=== PATIENT | female | born 1995 | race American Indian/Alaskan Native ===

== ENCOUNTER 2016-12-22 12:59 | Emergency (ER) | payer SELFPAY ==
[2016-12-22 14:00] VITALS: BP 147/92
--- NOTE | 2016-12-22 15:04 | Emergency Department Report ---
Entered by EUGENIA MCCLURE, acting as scribe for YONG FINNEY PA. ED ENT HPI - General Chief complaint: Sore Throat Stated complaint: SORE THROAT Time Seen by Provider: 12/22/16 14:19 Source: patient Mode of arrival: Ambulatory Limitations: No Limitations - History of Present Illness Initial comments: 21 year old female with no significant PMHx presents to the ED c/o sore throat that began 2 days ago. Rates pain an 8/10 in severity. Associated symptoms includes chills, nausea, vomiting, and diarrhea since last week, cough, neck swelling, and difficulty swallowing, but she denies fever, drooling, abdominal pain, SOB, and chest pain. Uses tobacco products daily, but denies EtOH consumption. Reports taking off-brand Tylenol with no relief of symptoms. LMP . complaint: sore throat Onset/Timin -: days(s) Location: throat Severity: moderate Severity scale (0 -10): 8 Quality: aching Consistency: constant Improves with: none (off-brand Tylenol with no relief) Worsens with: swallowing Associated Symptoms: cough, sore throat, rhinorrhea, other (chills, nausea, vomiting, diarrhea, cough, neck swelling, but denies drooling, andominal pain, SOB, and chest pain). denies: fever, gum swelling, toothache, discharge from ear - Related Data Previous Rx's Medication Instructions Recorded Last Taken Type Cetirizine HCl [ZyrTEC] 10 mg PO QDAY #14 capsule 12/22/16 Unknown Rx Fluticasone [Flonase] 1 spray NS QDAY #1 bottle 12/22/16 Unknown Rx Ibuprofen [Motrin] 600 mg PO Q8H PRN #15 tablet 12/22/16 Unknown Rx Allergies Allergy/AdvReac Type Severity Reaction Status Date / Time No Known Allergies Allergy Unverified 12/22/16 13:55 ED Dental HPI - General Chief complaint: Sore Throat Stated complaint: SORE THROAT Time Seen by Provider: 12/22/16 14:19 Source: patient Mode of arrival: Ambulatory Limitations: No Limitations - History of Present Illness MD complaint: sore throat Onset/Timin -: days(s) Severity: moderate Quality: aching Consistency: constant Improves with: none (took of-brand Tylenol with no relief) Worsens with: swallowing Dental Associated Symptons: Yes: Sore Throat. No: Headache, Fever - Related Data Previous Rx's Medication Instructions Recorded Last Taken Type Cetirizine HCl [ZyrTEC] 10 mg PO QDAY #14 capsule 12/22/16 Unknown Rx Fluticasone [Flonase] 1 spray NS QDAY #1 bottle 12/22/16 Unknown Rx Ibuprofen [Motrin] 600 mg PO Q8H PRN #15 tablet 12/22/16 Unknown Rx Allergies Allergy/AdvReac Type Severity Reaction Status Date / Time No Known Allergies Allergy Unverified 12/22/16 13:55 ED Review of Systems Comment: All other systems reviewed and negative Constitutional: chills. denies: fever ENT: throat pain, congestion. denies: ear pain, other (drooling, but reports difficulty swallowing) Respiratory: cough. denies: orthopnea, shortness of breath, SOB with exertion, SOB at rest Cardiovascular: denies: chest pain Gastrointestinal: nausea, vomiting, diarrhea. denies: abdominal pain Musculoskeletal: other (neck swelling). denies: back pain, arthralgia Skin: denies: rash Neurological: denies: headache ED Past Medical Hx - Past Medical History Previous Medical History?: No - Surgical History Past Surgical History?: No - Family History Family history: no significant - Social History Smoking Status: Current Every Day Smoker Substance Use Type: None - Medications Home Medications: Home Medications Medication Instructions Recorded Confirmed Last Taken Type Cetirizine HCl [ZyrTEC] 10 mg PO QDAY #14 capsule 12/22/16 Unknown Rx Fluticasone [Flonase] 1 spray NS QDAY #1 bottle 12/22/16 Unknown Rx Ibuprofen [Motrin] 600 mg PO Q8H PRN #15 tablet 12/22/16 Unknown Rx ED Physical Exam - General Limitations: No Limitations General appearance: alert, in no apparent distress - Head Head exam: Present: atraumatic, normocephalic, normal inspection - Eye Eye exam: Present: normal appearance, PERRL, EOMI Pupils: Present: normal accommodation - ENT ENT exam: Present: normal exam, normal orophraynx, mucous membranes moist, TM's normal bilaterally (bilaterally pearly mclaughlin), normal external ear exam, other ( congested with eryyhema and clear drainage) - Expanded ENT Exam Expanded Ear exam: Present: normal external inspection Mouth exam: Present: normal external inspection. Absent: drooling, trismus, muffled voice, tongue normal, tongue elevation, laceration Teeth exam: Present: normal inspection Throat exam: Positive: other ( erythema pharynx). Negative: tonsillar erythema , tonsillomegaly, tonsillar exudate, R peritonsillar mass, L peritonsillar mass - Neck Neck exam: Present: normal inspection (supple), full ROM, lymphadenopathy ( cervical). Absent: tenderness - Respiratory Respiratory exam: Present: normal lung sounds bilaterally. Absent: respiratory distress, wheezes, rales, rhonchi, stridor, chest wall tenderness - Cardiovascular Cardiovascular Exam: Present: regular rate, normal rhythm, normal heart sounds. Absent: systolic murmur, diastolic murmur, rubs, gallop - GI/Abdominal GI/Abdominal exam: Present: soft, normal bowel sounds. Absent: distended, tenderness, guarding, rebound, rigid - Extremities Exam Extremities exam: Present: normal inspection, full ROM, normal capillary refill. Absent: tenderness, pedal edema, joint swelling, calf tenderness - Back Exam Back exam: Present: normal inspection, full ROM. Absent: tenderness - Neurological Exam Neurological exam: Present: alert, oriented X3, normal gait, reflexes normal. Absent: motor sensory deficit - Psychiatric Psychiatric exam: Present: normal affect, normal mood - Skin Skin exam: Present: warm, dry, intact, normal color. Absent: rash ED Course Vital Signs 12/22/16 13:55 Temperature 98.2 F Pulse Rate 74 Respiratory 20 Rate Blood Pressure 147/92 O2 Sat by Pulse 100 Oximetry ED Medical Decision Making - Lab Data Strep negative and culture pending - Medical Decision Making ED course: Strep test is negative and cultures are pending. I discussed the patient that she has no sign of inflammation which is viral in nature and will be treated with Motrin, Flonase and Zyrtec. Voice understanding and to follow- up with her primary care physician in 3-5 days and if she does not have one that she will need to follow-up with [facility]. ED Disposition Clinical Impression: Nausea and vomiting in adult patient Sinusitis nasal Qualifiers: Sinusitis location: unspecified location Chronicity: acute Recurrence: recurrent Qualified Code(s): J01.91 - Acute recurrent sinusitis, unspecified Acute pharyngitis Qualifiers: Pharyngitis/tonsillitis etiology: unspecified etiology Qualified Code(s): J02.9 - Acute pharyngitis, unspecified Disposition: DISCHARGED TO HOME OR SELFCARE Is pt being admited?: No Does the pt Need Aspirin: No Condition: Stable Instructions: Pharyngitis (ED), Sinusitis (ED), Viral Syndrome (ED) Additional Instructions: Please increase her fluid intake flush and nostrils with nasal saline wash. Take medication as prescribed Prescriptions: Cetirizine HCl [ZyrTEC] 10 mg PO QDAY #14 capsule Fluticasone [Flonase] 1 spray NS QDAY #1 bottle Ibuprofen [Motrin] 600 mg PO Q8H PRN #15 tablet PRN Reason: Pain Referrals: PRIMARY CARE,MD [Primary Care Provider] - 3-5 Days [facility] [Outside] - 3-5 Days Forms: Work/School Release Form(ED) This documentation as recorded by the REN garcia JASMINE,accurately reflects the service I personally performed and the decisions made by SHARMIN grant VERONA A, PA.
== END 2016-12-22 15:24 | disposition home or self-care (01) ==
LOC: ED 12:59
DX: R11.2 Nausea with vomiting, unspecified (principal); J01.91 Acute recurrent sinusitis, unspecified; J02.9 Acute pharyngitis, unspecified; F17.200 Nicotine dependence, unspecified, uncomplicated
CPT/HCPCS: 87116; 87430; 99282

== ENCOUNTER 2017-05-26 07:50 | Emergency (ER) | payer OTHER ==
[2017-05-26] MEDS ORDERED: FLEXERIL PO ONE (11:48)
[2017-05-26] MEDS ORDERED: NORCO 5/325 PO ONE (11:48)
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
[2017-05-26 12:53] VITALS: BP 127/81
== END 2017-05-26 12:52 | disposition home or self-care (01) ==
LOC: ED 07:50
DX: M54.5 Low back pain (principal); M62.830 Muscle spasm of back; V49.88XA Car occupant (driver) (passenger) injured in other specified transport accidents, initial encounter; Y92.488 Other paved roadways as the place of occurrence of the external cause; Y93.89 Activity, other specified; Y99.8 Other external cause status
CPT/HCPCS: 99282

== ENCOUNTER 2017-05-28 16:54 | Emergency (ER) | payer SELFPAY ==
[2017-05-28 19:33] LABS: Bilirubin,Urine NEG (Negative); Blood,Urine NEG (Negative); Ketones,Urine NEG (Negative); Leukocyte Esterase,Urine TR (Negative); Nitrite,Urine NEG (Negative); Protein,Urine <15 mg/dL mg/dL (Negative); Urobilinogen,Urine < 2.0 mg/dL (<2.0)
--- NOTE | 2017-05-29 00:04 | Emergency Department Report ---
Minor Respiratory - HPI Chief Complaint: Sore Throat Stated Complaint: CAN NOT BREATH Time Seen by Provider: 05/28/17 23:14 Duration: for over a week Pain Location: Throat, Other (Body ache) Severity: mild (4 out of 10) Minor Respiratory: Yes Rhinorrhea ( nasal congestion), Yes Sore Throat, Yes Able to Tolerate Fluids, Yes Cough, No Ear Pain, No Sick Contacts, No Hemoptysis , No Chest Pain, No Shortness of Breath, No Fever (she says she has chills) Other History: Pt here reports that she has sore throat, body ache and difficulty swallowing and with cough. She says she's been having nasal congestion and runny nose for over a week but now she is having sore throat with body aches for the past 2 days. She says she doesn't know she has a fever but she was feeling in hot and cold and she took some Motrin. Denies any nausea or vomiting. Denies any chest pain or shortness of breath at present. She denies any medical problems. ED Review of Systems ROS: Stated complaint: CAN NOT BREATH Other details as noted in HPI Comment: All other systems reviewed and negative Constitutional: chills Eyes: denies: eye pain, eye discharge, vision change ENT: throat pain, congestion. denies: ear pain Respiratory: cough. denies: shortness of breath, SOB with exertion, SOB at rest , stridor, wheezing Cardiovascular: denies: chest pain, palpitations, edema, syncope Gastrointestinal: denies: abdominal pain, nausea, vomiting Genitourinary: denies: dysuria Musculoskeletal: myalgia. denies: back pain, arthralgia Skin: denies: rash Neurological: denies: headache, weakness, numbness, paresthesias, confusion, abnormal gait ED Past Medical Hx - Past Medical History Previous Medical History?: Yes Additional medical history: Obesity with BMI of 49 - Surgical History Past Surgical History?: Yes - Family History Family history: no significant - Social History Smoking Status: Current Every Day Smoker Substance Use Type: None Other Social History: Single - Medications Home Medications: Home Medications Medication Instructions Recorded Confirmed Last Taken Type Cetirizine HCl [ZyrTEC] 10 mg PO QDAY #14 capsule 12/22/16 05/28/17 05/28/17 Rx Amoxicillin/K Clav Tab [Augmentin 1 tab PO Q12HR #20 tab 05/29/17 Unknown Rx 875 mg] Cetirizine HCl [ZyrTEC] 10 mg PO QDAY #14 capsule 05/29/17 Unknown Rx Fluticasone [Flonase] 1 spray NS QDAY #1 bottle 05/29/17 Unknown Rx Ibuprofen [Motrin] 800 mg PO Q8HR PRN #15 tablet 05/29/17 Unknown Rx Minor Respiratory Exam - Exam General: Vital signs noted. No distress. Alert and acting appropriately. This is a 21-year-old female well-nourished well-developed and in no acute distress. HEENT: Yes Moist Mucous Membranes, Yes Rhinorrhea (nasal mucosa congested with erythema and clear drainage), Yes Maxillary Tenderness (maxillary sinus tenderness to palpate bilaterally), No Pharyngeal Erythema, No Pharyngeal Exudates, No Conjuctival Injection, No Frontal Tenderness Ear: Neither TM Bulge, Neither TM Erythema (lateral TM congested without erythema), Neither EAC Pain, Neither EAC Discharge Neck: Yes Supple, No Adenopathy Lungs: Yes Good Air Exchange, Yes Cough (dry cough), No Wheezes, No Ronchi, No Stridor, No Labored Respirations, No Retractions, No Use of Accessory Muscles, No Other Abnormal Lung Sounds Heart: Yes Regular, No Murmur Abdomen: Yes Normal Bowel Sounds, No Tenderness, No Peritoneal Signs Skin: No Rash, No Edema Neurologic: Alert and oriented, no deficits. No focal neurological deficit. Patient is alert and oriented 3. Normal gait. Musculoskeletal: Unremarkable. Normal exam. Extremity: No clubbing cyanosis or edema. +2 pulses to all extremities and no neurovascular compromise ED Course Vital Signs 05/28/17 05/28/17 18:04 21:22 Temperature 98.4 F 98.7 F Pulse Rate 73 76 Respiratory 16 20 Rate Blood Pressure 129/84 Blood Pressure 125/83 [Right] O2 Sat by Pulse 99 99 Oximetry - Reevaluation(s) Reevaluation #1: 05/29/17 00:32 stable throughout ED stay ED Medical Decision Making - Medical Decision Making ED course: Pt here reported that she has sore throat with difficulty swallowing , body aches this is preceded by nasal congestion and runny nose. Patient did not take any [id number] medication for symptoms.For acute sinusitis, pharyngitis and cough. Diagnosis and treatment plan explained to patient and she voices understanding. Patient also instructed on smoking cessation and obesity. Discharged home in stable condition with prescription for Zyrtec, Flonase and Augmentin. Critical care attestation.: If time is entered above; I have spent that time in minutes in the direct care of this critically ill patient, excluding procedure time. ED Disposition Clinical Impression: Nicotine abuse, Encounter for smoking cessation counseling, Cough in adult patient Obesity Qualifiers: Obesity type: unspecified obesity type Obesity classification: adult class 3 ( BMI >= 40) Serious obesity comorbidity presence: without serious comorbidity Body mass index: BMI 50.0-59.9 Qualified Code(s): E66.9 - Obesity, unspecified; Z68.43 - Body mass index (BMI) 50-59.9 , adult Sinusitis, acute Qualifiers: Sinusitis location: unspecified location Recurrence: not specified as recurrent Qualified Code(s): J01.90 - Acute sinusitis, unspecified Pharyngitis Qualifiers: Pharyngitis/tonsillitis etiology: unspecified etiology Qualified Code(s): J02.9 - Acute pharyngitis, unspecified Disposition: DC- TO HOME OR SELFCARE Is pt being admited?: No Does the pt Need Aspirin: No Condition: Stable Instructions: How to Stop Smoking (ED), Weight Management (ED), Obesity (ED), Sinusitis (ED), Acute Cough (ED), Pharyngitis (ED) Additional Instructions: Please take antibiotic as prescribed He can take Motrin and this will help to relieve his sore throat gargle with warm salt water Flush nostrils with normal saline nasal Please follow discharge instructions on obesity, weight loss and smoking Prescriptions: Amoxicillin/K Clav Tab [Augmentin 875 mg] 1 tab PO Q12HR #20 tab Cetirizine HCl [ZyrTEC] 10 mg PO QDAY #14 capsule Fluticasone [Flonase] 1 spray NS QDAY #1 bottle Ibuprofen [Motrin] 800 mg PO Q8HR PRN #15 tablet PRN Reason: Sore Throat Referrals: PRIMARY CARE [Primary Care Provider] - 06/02/17 Forms: Work/School Release Form(ED)
[2017-05-29 00:51] VITALS: BP 149/97
== END 2017-05-29 01:00 | disposition home or self-care (01) ==
LOC: ED 16:54
DX: J01.90 Acute sinusitis, unspecified (principal); J02.9 Acute pharyngitis, unspecified; E66.9 Obesity, unspecified; Z68.43 Body mass index [BMI] 50.0-59.9, adult; F17.200 Nicotine dependence, unspecified, uncomplicated
CPT/HCPCS: 81001; 81025

== ENCOUNTER 2019-02-20 10:27 | Emergency (ER) | payer OTHER ==
[2019-02-20 10:35] VITALS: BP 127/94
--- NOTE | 2019-02-20 11:38 | Emergency Department Report ---
ED Upper Extremity Inj HPI - General Chief Complaint: Extremity Injury, Upper Stated Complaint: LT ARM PAIN Time Seen by Provider: 02/20/19 11:29 Source: patient Mode of arrival: Ambulatory Limitations: No Limitations - History of Present Illness Initial Comments: 23-year-old female presents the ED with complaint of left shoulder pain since yesterday. [place] states she was pulling heavy trash bags when she experienced pain in the left chest wall and shoulder. Patient was advised to ice the area, presents today because of continued pain. Patient states pain is worse when she attempts to abduct her left arm or rotate the left arm posteriorly. Denies shortness of breath. Complaint: Injury to:: left, shoulder -: days(s) (1) Other Injuries: none Place: work Improves With: immobilization Worsens With: movement of extremity Context: other (pulling heavy object) Associated Symptoms: denies: weakness, numbness, neck pain, heard/felt popping sensat Treatments Prior to Arrival: cold therapy - Related Data Previous Rx's Medication Instructions Recorded Last Taken Type Cetirizine HCl [ZyrTEC] 10 mg PO QDAY #14 capsule 12/22/16 05/28/17 Rx Amoxicillin/K Clav Tab [Augmentin 1 tab PO Q12HR #20 tab 05/29/17 Unknown Rx 875 mg] Cetirizine HCl [ZyrTEC] 10 mg PO QDAY #14 capsule 05/29/17 Unknown Rx Fluticasone [Flonase] 1 spray NS QDAY #1 bottle 05/29/17 Unknown Rx Ibuprofen [Motrin] 800 mg PO Q8HR PRN #15 tablet 05/29/17 Unknown Rx Naproxen [Naprosyn] 500 mg PO BID #20 tablet 02/20/19 Unknown Rx methOCARBAMOL [Robaxin TAB] 500 mg PO Q8HR PRN #20 tablet 02/20/19 Unknown Rx Allergies Allergy/AdvReac Type Severity Reaction Status Date / Time No Known Allergies Allergy Verified 02/20/19 10:28 ED Review of Systems ROS: Stated complaint: LT ARM PAIN Other details as noted in HPI Comment: All other systems reviewed and negative Respiratory: denies: shortness of breath Cardiovascular: chest pain (reports chest wall pain) Musculoskeletal: as per HPI Neurological: denies: weakness, numbness, paresthesias ED Past Medical Hx - Past Medical History Additional medical history: Obesity with BMI of 49 - Social History Smoking Status: Current Every Day Smoker Substance Use Type: None - Medications Home Medications: Home Medications Medication Instructions Recorded Confirmed Last Taken Type Cetirizine HCl [ZyrTEC] 10 mg PO QDAY #14 capsule 12/22/16 05/28/17 05/28/17 Rx Amoxicillin/K Clav Tab [Augmentin 1 tab PO Q12HR #20 tab 05/29/17 Unknown Rx 875 mg] Cetirizine HCl [ZyrTEC] 10 mg PO QDAY #14 capsule 05/29/17 Unknown Rx Fluticasone [Flonase] 1 spray NS QDAY #1 bottle 05/29/17 Unknown Rx Ibuprofen [Motrin] 800 mg PO Q8HR PRN #15 tablet 05/29/17 Unknown Rx Naproxen [Naprosyn] 500 mg PO BID #20 tablet 02/20/19 Unknown Rx methOCARBAMOL [Robaxin TAB] 500 mg PO Q8HR PRN #20 tablet 02/20/19 Unknown Rx ED Physical Exam - General Limitations: No Limitations General appearance: alert, in no apparent distress, obese - Head Head exam: Present: atraumatic, normocephalic - Eye Eye exam: Present: normal appearance - ENT ENT exam: Present: mucous membranes moist - Neck Neck exam: Present: normal inspection - Respiratory Respiratory exam: Present: normal lung sounds bilaterally. Absent: respiratory distress - Cardiovascular Cardiovascular Exam: Present: regular rate, normal rhythm - GI/Abdominal GI/Abdominal exam: Absent: distended - Extremities Exam Extremities exam: Present: other (tenderness to anterior left shoulder and left superolateral chest wall, pain w/ ROM of left shoulder, no swelling or deformity noted) - Neurological Exam Neurological exam: Present: alert, oriented X3. Absent: motor sensory deficit - Psychiatric Psychiatric exam: Present: normal affect, normal mood - Skin Skin exam: Present: warm, dry, intact, normal color. Absent: rash ED Course Vital Signs 02/20/19 10:32 Temperature 98.6 F Pulse Rate 84 Respiratory 16 Rate Blood Pressure 127/94 O2 Sat by Pulse 98 Oximetry ED Medical Decision Making - Differential Diagnosis costochondritis, rotator cuff injury Critical care attestation.: If time is entered above; I have spent that time in minutes in the direct care of this critically ill patient, excluding procedure time. ED Disposition Clinical Impression: Rotator cuff tendinitis, Chest wall pain Disposition: TO HOME OR SELFCARE Is pt being admited?: No Condition: Stable Instructions: Rotator Cuff Tendinitis (ED), Costochondritis (ED) Prescriptions: Naproxen [Naprosyn] 500 mg PO BID #20 tablet methOCARBAMOL [Robaxin TAB] 500 mg PO Q8HR PRN #20 tablet PRN Reason: Muscle Spasm Referrals: [place] KASSANDRAGRANBY MD KOLTON [Primary Care Provider] - 3-5 Days CASTRO GUERRERO MD [Staff Physician] - 3-5 Days Forms: Work/School Release Form(ED) Time of Disposition: 11:38
== END 2019-02-20 11:52 | disposition home or self-care (01) ==
LOC: ED 10:27
DX: M77.9 Enthesopathy, unspecified (principal); F17.200 Nicotine dependence, unspecified, uncomplicated; Z79.899 Other long term (current) drug therapy
CPT/HCPCS: 99282

== ENCOUNTER 2019-06-04 10:57 | Emergency (ER) | payer SELFPAY ==
--- NOTE | 2019-06-04 11:18 | Event Note ---
ED Screening Note Date of service: 06/04/19 Time: 11:17 ED Screening Note: This is a 23 y.o. F. that presents to the ER with sore throat, cough, congestion, and back pain for 2 days. Taken nyquil cold and flu. No significant PMH. This initial assessment/diagnostic orders/clinical plan/treatment(s) is/are subject to change based on patients health status, clinical progression and re- assessment by fellow clinical providers in the ED. Further treatment and workup at subsequent clinical providers discretion. Patient/guardian urged not to elope from the ED as their condition may be serious if not clinically assessed and managed. Initial orders include:
[2019-06-04 11:19] VITALS: BP 115/79
--- NOTE | 2019-06-04 12:03 | Emergency Department Report ---
- General Chief Complaint: Upper Respiratory Infection Stated Complaint: COLD/SICK Time Seen by Provider: 06/04/19 11:16 Source: patient Mode of arrival: Ambulatory Limitations: No Limitations - History of Present Illness MD Complaint: cough, rhinorrhea, nasal congestion Onset/Timin -: Gradual, days(s) Severity scale (0 -10): 5 Quality: dull Consistency: intermittent Improves With: nothing, OTC cold medicine Context: sick contacts Associated Symptoms: myalgias, rhinorrhea, nasal congestion, sore throat, cough, nausea. denies: fever, stiff neck, vomiting, diarrhea, dysuria Treatments Prior to Arrival: none - Related Data Previous Rx's Medication Instructions Recorded Last Taken Type Cetirizine HCl [ZyrTEC] 10 mg PO QDAY #14 capsule 12/22/16 05/28/17 Rx Amoxicillin/K Clav Tab [Augmentin 1 tab PO Q12HR #20 tab 05/29/17 Unknown Rx 875 mg] Fluticasone [Flonase] 1 spray NS QDAY #1 bottle 05/29/17 Unknown Rx Naproxen [Naprosyn] 500 mg PO BID #20 tablet 02/20/19 Unknown Rx methOCARBAMOL [Robaxin TAB] 500 mg PO Q8HR PRN #20 tablet 02/20/19 Unknown Rx Benzonatate [Tessalon Perles] 100 mg PO Q8HR #30 capsule 06/04/19 Unknown Rx Cetirizine HCl [ZyrTEC 10mg cap] 10 mg PO QDAY #14 capsule 06/04/19 Unknown Rx Ibuprofen [Motrin 800 MG tab] 800 mg PO Q8HR PRN #15 tablet 06/04/19 Unknown Rx Acetaminophen [Non-Aspirin Extra 500 mg PO Q6HR PRN #30 tablet 06/30/19 Unknown Rx Strength] Ibuprofen [Motrin] 600 mg PO Q8H PRN #30 tablet 06/30/19 Unknown Rx Allergies Allergy/AdvReac Type Severity Reaction Status Date / Time No Known Allergies Allergy Verified 02/20/19 10:28 ED Review of Systems ROS: Stated complaint: COLD/SICK Other details as noted in HPI Comment: All other systems reviewed and negative Constitutional: malaise ENT: ear pain, throat pain Respiratory: cough. denies: orthopnea Cardiovascular: denies: chest pain, palpitations Endocrine: denies: excessive sweating, flushing Gastrointestinal: denies: nausea, vomiting Genitourinary: denies: urgency Musculoskeletal: denies: back pain Skin: denies: rash Neurological: denies: headache Psychiatric: denies: anxiety ED Past Medical Hx - Past Medical History Previous Medical History?: No Additional medical history: Obesity with BMI of 49 - Surgical History Past Surgical History?: No - Social History Smoking Status: Never Smoker Substance Use Type: None - Medications Home Medications: Home Medications Medication Instructions Recorded Confirmed Last Taken Type Cetirizine HCl [ZyrTEC] 10 mg PO QDAY #14 capsule 12/22/16 05/28/17 05/28/17 Rx Amoxicillin/K Clav Tab [Augmentin 1 tab PO Q12HR #20 tab 05/29/17 Unknown Rx 875 mg] Fluticasone [Flonase] 1 spray NS QDAY #1 bottle 05/29/17 Unknown Rx Naproxen [Naprosyn] 500 mg PO BID #20 tablet 02/20/19 Unknown Rx methOCARBAMOL [Robaxin TAB] 500 mg PO Q8HR PRN #20 tablet 02/20/19 Unknown Rx Benzonatate [Tessalon Perles] 100 mg PO Q8HR #30 capsule 06/04/19 Unknown Rx Cetirizine HCl [ZyrTEC 10mg cap] 10 mg PO QDAY #14 capsule 06/04/19 Unknown Rx Ibuprofen [Motrin 800 MG tab] 800 mg PO Q8HR PRN #15 tablet 06/04/19 Unknown Rx Acetaminophen [Non-Aspirin Extra 500 mg PO Q6HR PRN #30 tablet 06/30/19 Unknown Rx Strength] Ibuprofen [Motrin] 600 mg PO Q8H PRN #30 tablet 06/30/19 Unknown Rx ED Physical Exam - General Limitations: No Limitations General appearance: alert, in no apparent distress - Head Head exam: Present: atraumatic, normocephalic - Eye Eye exam: Present: normal appearance, PERRL, EOMI Pupils: Present: normal accommodation - ENT ENT exam: Present: normal exam, normal orophraynx - Neck Neck exam: Present: normal inspection - Respiratory Respiratory exam: Present: normal lung sounds bilaterally, respiratory distress - Cardiovascular Cardiovascular Exam: Present: regular rate, normal rhythm - GI/Abdominal GI/Abdominal exam: Present: soft ED Course Vital Signs 06/04/19 11:16 Temperature 97.9 F Pulse Rate 91 H Respiratory 16 Rate Blood Pressure 115/79 [Left] O2 Sat by Pulse 97 Oximetry Critical care attestation.: If time is entered above; I have spent that time in minutes in the direct care of this critically ill patient, excluding procedure time. ED Disposition Clinical Impression: Viral upper respiratory tract infection with cough, Acute viral pharyngitis Disposition: DC- TO HOME OR SELFCARE Is pt being admited?: No Does the pt Need Aspirin: No Condition: Stable Prescriptions: Ibuprofen [Motrin 800 MG tab] 800 mg PO Q8HR PRN #15 tablet PRN Reason: Sore Throat Benzonatate [Tessalon Perles] 100 mg PO Q8HR #30 capsule Cetirizine HCl [ZyrTEC 10mg cap] 10 mg PO QDAY #14 capsule Referrals: STEPHEN BECERRIL MD [Primary Care Provider] - 3-5 Days Forms: Work/School Release Form(ED)
== END 2019-06-04 12:33 | disposition home or self-care (01) ==
LOC: ED 10:57
DX: J02.8 Acute pharyngitis due to other specified organisms (principal); J06.9 Acute upper respiratory infection, unspecified; Z79.899 Other long term (current) drug therapy
CPT/HCPCS: 99282

== ENCOUNTER 2019-06-30 20:14 | Emergency (ER) | payer OTHER ==
[2019-06-30 21:13] VITALS: BP 135/83
[2019-06-30] MEDS ORDERED: KETOROLAC 30 MG/1 ML INJ IM STA (23:23)
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
== END 2019-06-30 23:58 | disposition home or self-care (01) ==
LOC: ED 20:14
DX: M54.89 Other dorsalgia (principal); M54.2 Cervicalgia; F17.200 Nicotine dependence, unspecified, uncomplicated; Z79.899 Other long term (current) drug therapy; V89.2XXA Person injured in unspecified motor-vehicle accident, traffic, initial encounter; Y93.89 Activity, other specified; Y92.410 Unspecified street and highway as the place of occurrence of the external cause; Y99.8 Other external cause status
CPT/HCPCS: 96372; 99282; J1885